=== PATIENT | female | born 1975 ===

== ENCOUNTER → 2023-08-16 | Outpatient (CLI) | payer OTHER | END | disposition home or self-care (01) | LOC: RAD 10:04 | PROVIDERS: ATTEND Orthopaedic Surgery | DX: S82.62XA Displaced fracture of lateral malleolus of left fibula, initial encounter for closed fracture (principal) ==

== ENCOUNTER 2023-09-13 07:47 | Outpatient (CLI) | payer OTHER | END 2023-09-13 07:56 | disposition home or self-care (01) | LOC: RAD 07:47 | PROVIDERS: ATTEND Orthopaedic Surgery | DX: S82.62XD Displaced fracture of lateral malleolus of left fibula, subsequent encounter for closed fracture with routine healing (principal) ==

== ENCOUNTER 2023-10-11 08:29 | Outpatient (CLI) | payer OTHER | END 2023-10-11 08:40 | disposition home or self-care (01) | LOC: RAD 08:29 | PROVIDERS: ATTEND Orthopaedic Surgery | DX: S82.62XD Displaced fracture of lateral malleolus of left fibula, subsequent encounter for closed fracture with routine healing (principal) ==

== ENCOUNTER 2023-12-20 07:15 | Outpatient (CLI) | payer OTHER | END 2023-12-20 07:26 | disposition home or self-care (01) | LOC: RAD 07:15 | PROVIDERS: ATTEND Orthopaedic Surgery | DX: S82.62XD Displaced fracture of lateral malleolus of left fibula, subsequent encounter for closed fracture with routine healing (principal) ==